=== PATIENT | female | born 1970 | race Caucasian/White ===

== ENCOUNTER 2021-09-05 03:13 | Emergency (ER) | payer OTHER ==
[~2021-09-05] VITALS: Ht 170.2 cm; Wt 74.8 kg
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
--- NOTE | 2021-09-05 03:35 | NUR ---
DR. SEGAL AT BEDSIDE, MSE IN PROGRESS.
[2021-09-05] MEDS ORDERED: MORPHINE SULFATE 4 MG/1 ML DISP.SYRIN IM ONE (03:45)
[2021-09-05] MEDS ORDERED: ONDANSETRON 4 MG/2 ML VIAL IM ONE (03:45)
[2021-09-05] MEDS ORDERED: MORPHINE SULFATE 4 MG/1 ML DISP.SYRIN ONE (03:47)
[2021-09-05] MEDS ORDERED: ONDANSETRON 4 MG/2 ML VIAL ONE (03:47)
--- NOTE | 2021-09-05 03:55 | NUR ---
XRAY AT BEDSIDE.
[2021-09-05] MEDS ORDERED: IV NORMAL SALINE 1000 ML BAG IV ONE (04:00)
--- NOTE | 2021-09-05 04:15 | NUR ---
PT BEING TAKEN DOWN FOR CT.
[2021-09-05 04:23] LABS: HEMATOCRIT 47.8 % (31.2-41.9); MEAN CORPUSCULAR HEMOGLOBIN 32.9 uug (24.7-32.8); MEAN CORPUSCULAR VOLUME 96.5 fL (75.5-95.3); PLATELET COUNT (AUTO) 228 K/uL (179-408)
[2021-09-05 04:24] LABS: CARBON DIOXIDE 27 mmol/L (21-32); CHLORIDE 104 mmol/L (98-107); CREATININE 0.9 mg/dL (0.6-1.3); GLUCOSE 129 mg/dL (74-106); POTASSIUM 4.1 mmol/L (3.5-5.1); UREA NITROGEN, BLOOD 13 mg/dL (7-18)
[2021-09-05 04:30] LABS: ALANINE AMINOTRANSFERASE 28 U/L (14-59); ALKALINE PHOSPHATASE 104 U/L (50-136); ASPARTATE AMINOTRANSFERASE 18 U/L (15-37); BILIRUBIN,DIRECT < 0.1 mg/dL (0.0-0.2); BILIRUBIN,TOTAL 0.2 mg/dL (0.2-1.0); TOTAL PROTEIN, SERUM 7.8 g/dL (6.4-8.2)
--- NOTE | 2021-09-05 04:36 | NUR ---
PT RETURNED FROM CT.
--- NOTE | 2021-09-05 04:48 | NUR ---
ASSISTED TO AMBULATE TO RESTROOM, STEADY GAIT.
[2021-09-05 05:04] LABS: ETHANOL < 3 MG/DL (0-0)
[2021-09-05 05:08] LABS: *AMPHETAMINE, URINE NEGATIVE (NEGATIVE); *CANNABINOID, URINE NEGATIVE (NEGATIVE); *COCCAINE, URINE NEGATIVE (NEGATIVE); *OPIATE, URINE POSITIVE (NEGATIVE); *PHENCYCLIDINE SCREEN,URINE NEGATIVE (NEGATIVE)
[2021-09-05] MEDS ORDERED: MORPHINE SULFATE 2 MG/1 ML DISP.SYRIN IV ONE (05:30)
[2021-09-05] MEDS ORDERED: MORPHINE SULFATE 2 MG/1 ML DISP.SYRIN ONE (05:33)
[2021-09-05] MEDS ORDERED: HYDR-4209 PO (06:22)
[2021-09-05] MEDS ORDERED: KETOROLAC TROMETHAMINE 30 MG INJ IVP ONE (06:30)
[2021-09-05] MEDS ORDERED: KETOROLAC TROMETHAMINE 30 MG INJ ONE (06:33)
--- NOTE | 2021-09-05 06:42 | NUR ---
Patient discharged to home in stable condition. A/O x4, no SOB or labored breathing. Written and verbal after care instructions given. Patient verbalizes understanding of instructions. Stressed follow up or return to ER for worsening s/s. Steady gait.
[2021-09-05 07:04] VITALS: BP 128/88
== END 2021-09-05 06:50 | disposition home or self-care (01) ==
LOC: ER 03:18
DX: S20.219A Contusion of unspecified front wall of thorax, initial encounter (principal); V47.5XXA Car driver injured in collision with fixed or stationary object in traffic accident, initial encounter; Y92.414 Local residential or business street as the place of occurrence of the external cause; E27.8 Other specified disorders of adrenal gland; R91.8 Other nonspecific abnormal finding of lung field; R03.0 Elevated blood-pressure reading, without diagnosis of hypertension
CPT/HCPCS: 36415; 70450; 71045; 71250; 80048; 80076; 80307; 80320; 84484; 84702; 85025; 93005; 96361; 96372; 96374; 96375; 99285; J1885; J2270 ×2; J2405; 70030-TC; A4663; G0480; J7030